=== PATIENT | male | born 1950 ===

== ENCOUNTER → 2020-07-19 09:42 | Outpatient (CLI) | payer OTHER, SELFPAY ==
[2020-07-19 10:36] LABS: COVID19 -Nasal RAPID Negative (Negative)
== END ==
PROVIDERS: Visit Provider Specialist
DX: Z11.59 Encounter for screening for other viral diseases (principal)
CPT/HCPCS: 87635; C9803

== ENCOUNTER 2020-07-20 09:02 | Day surgery (SDC) | payer OTHER, SELFPAY ==
[2020-07-20] MEDS: LACTATED RINGERS 1,000 ML 200 ML IV (09:15)
[2020-07-20 09:17] VITALS: BP 140/76; PULSE 53; RESP 16; TEMP 36.6; O2SAT 97
[2020-07-20 09:25] VITALS: BMI 32.1
--- NOTE | 2020-07-20 11:39 | PM.HP.1 ---
History of Present Illness History of Present Illness Date Patient Seen: 07/20/20 Time Patient Seen: 11:39 Chief complaint: SCREENING COLONOSCOPY Narrative: The patient is a gentleman who had a colonoscopy in 2008. He reports having had polyps removed and he also believes his father of colon cancer metastatic to his liver. He was supposed to have a colonoscopy the about 5 years ago but for whatever reason(from my conversation with the patient it may have been his choice) that did not occur. He is here for colonoscopy. Patient History Medical History (Updated 07/20/20 @ 11:41 by Jordan Cruz MD) Personal history of colonic polyps Family & Social History Family History (Updated 07/20/20 @ 11:40 by Jordan Cruz MD) Father Cancer Social History: household members spouse Tobacco & Substance use: Smoking Status Former smoker alcohol intake frequency a few times a week Substance Use Type does not use Meds Home Medications and Allergies Home Medications Medication Instructions Recorded Confirmed Type allopurinol 300 mg PO DAILY 07/20/20 07/20/20 History Allergies Allergy/AdvReac Type Severity Reaction Status Date / Time No Known Drug Allergies Allergy Verified 07/20/20 09:16 Review of Systems Review of Systems ROS: Yes All systems reviewed with the patient and are negative except as otherwise documented Exam Vital Signs (past 8 hours): - 07/20/20 09:17 Temperature 97.9 F Pulse Rate 53 L Respiratory Rate 16 Blood Pressure 140/76 Pulse Oximetry 97 Oxygen Delivery Method Room Air Narrative Exam Narrative: Pleasant cooperative patient no apparent distress. Lungs are clear to auscultation. No rales or rhonchi. Heart regular rate and rhythm no murmur gallop. Abdomen is soft nontender without mass. No obvious hernias. Patient is alert and oriented x3. Assessment & Plan Assessment and plan (1) Personal history of colonic polyps: Status: Acute Assessment & Plan narrative: The patient for a screening colonoscopy. I have discussed the procedure with them. Risks of bleeding, perforation which would necessitate major operation, failure to find remove all lesions, the potential tattoo were all discussed. All questions were answered. They wished to proceed. I specified to the patient that he should be having these every 5 years not only due to his personal history but also his father having had colon cancer.
--- NOTE | 2020-07-20 11:48 | PM.PREOP ---
Pre-operative Note COVID-19 COVID-19 status: Negative Result date/Date tested (Pos, Neg/Pending): 07/17/20 Interval Note History & Physical reviewed/Exam performed by Physician: Yes Changes to H&P: No
[2020-07-20] MEDS: MIDAZOLAM 5 MG/5 ML VIAL IV (11:49)
[2020-07-20] MEDS: fentaNYL 250 MCG/5 ML INJ IV (11:49)
--- NOTE | 2020-07-20 12:13 | PM.OP.ENDO ---
Operative Date/Time/Diagnoses Date of procedure: 07/20/20 Time of procedure: 12:13 Pre-op diagnosis: Screening exam. Last exam was 10 years ago. He is 5 years overdue. Personal history of polyps. Father with colon cancer. Post-op diagnosis: same (Diverticulosis. Internal hemorrhoids.) Procedure & Clinicians Study performed: Colonoscopy Same procedure as scheduled: Yes Indications: Screening Surgeon: Jordan Cruz Procedure Notes SCOAP/Timeout: Perform Procedure in detail: The patient was placed in the left lateral decubitus position and underwent IV sedation directed by the surgeon consisting of fentanyl and Versed. Digital exam was unremarkable though I could not feel his prostate well due to his anatomy and the length of my finger.. The scope was inserted and advanced through the rectum into the sigmoid, descending, transverse, and ascending colon. Patient was noted to have sigmoid diverticulosis.. The cecum was reached identified by the ileocecal valve and the appendiceal opening. The scope was gradually brought out. No Polyps were found. The scope ultimately was retroflexed in the rectum. The appearance was remarkable for internal hemorrhoids without ulceration. The scope was removed and the patient tolerated the procedure well. The prep was very good. Scope withdrawal time: 10 minutes Sedation minutes: 22 Findings: diverticulosis (Sigmoid colon) and internal hemorrhoids Specimen(s): none sent Complications: none Post-procedure Recommendations: Colonscopy in 5 years (Due to personal history of polyps and family history of colon cancer) Follow up: as needed Disposition: PACU
[2020-07-20 12:16] VITALS: BP 155/78; PULSE 62; RESP 16; TEMP 37; O2SAT 93
[2020-07-20 12:21] VITALS: BP 139/80; PULSE 61; RESP 13; O2SAT 92
[2020-07-20 12:26] VITALS: BP 148/84; PULSE 59; RESP 13; O2SAT 92
[2020-07-20 13:00] VITALS: BP 140/87; PULSE 58; RESP 16; TEMP 36.6; O2SAT 95
--- NOTE | 2020-07-20 13:05 | SUR.PHASEII ---
Stable Phase 2, soft belly no nausea, VSS and ready to go, called, pt left in stable condition.
== END 2020-07-20 12:55 | disposition home or self-care (01) ==
PROVIDERS: PCP Internal Medicine; Referring Provider Specialist; Visit Provider Specialist
PROC: 0DJD8ZZ Inspection of Lower Intestinal Tract, Via Natural or Artificial Opening Endoscopic (ICD-10-PCS; CPT 45378; principal; 2020-07-20 10:00)
DX: Z12.11 Encounter for screening for malignant neoplasm of colon (principal); Z80.0 Family history of malignant neoplasm of digestive organs; Z86.010 Personal history of colon polyps; K64.8 Other hemorrhoids; K57.30 Diverticulosis of large intestine without perforation or abscess without bleeding
CPT/HCPCS: 45378; 99152; J2250; J3010